=== PATIENT | female | born 1970 | race Caucasian/White ===

== ENCOUNTER 2017-02-22 16:35 | Emergency (ER) | payer OTHER ==
[~2017-02-22] VITALS: Ht 157.5 cm; Wt 78.9 kg
[~2017-02-22 16:35] MED LIST: LEVOTHYROXINE0.1 M1 PO
--- NOTE | 2017-02-22 16:47 | NUR ---
PATIENT PRESENTS TO ED FOR MEDICATION REFILL . PT STATES SHE RAN OUT OF HER LEVOTHYROXINE 2 WEEKS AGO AND CAN'T SEE HER PCP FOR 3 DAYS. DENIES N/V/D; SKIN IS PINK/WARM/DRY; AAOX4 WITH EVEN AND STEADY GAIT; LUNGS CLEAR BL; HR EVEN AND REGULAR; PT DENIES ANY FEVER, CP, SOB, OR COUGH AT THIS TIME; PATIENT STATES PAIN OF 0/10 AT THIS TIME; VSS ER MD MADE AWARE OF PT STATUS.
--- NOTE | 2017-02-22 16:50 | NUR ---
Vickie EVALUATING PT IN TRIAGE.
[2017-02-22 16:51] VITALS: BP 135/74
[2017-02-22 16:58] VITALS: BP 135/74
--- NOTE | 2017-02-22 16:59 | NUR ---
Patient discharged with v/s stable. Written and verbal after care instructions given and explained. Patient alert, oriented and verbalized understanding of instructions. Ambulatory with steady gait. All questions addressed prior to discharge. ID band removed. Patient advised to follow up with PMD. Rx of LEVO-T given. Patient educated on indication of medication including possible reaction and side effects. Opportunity to ask questions provided and answered.
== END 2017-02-22 16:59 | disposition home or self-care (01) ==
LOC: MED 16:35
DX: Z76.0 Encounter for issue of repeat prescription (principal); E03.9 Hypothyroidism, unspecified

== ENCOUNTER 2019-04-07 15:39 | Emergency (ER) | payer OTHER ==
[~2019-04-07] VITALS: Ht 157.5 cm; Wt 81.6 kg
[~2019-04-07 15:39] MED LIST changes: +LEVO0.1T19 PO; -LEVOTHYROXINE0.1 M1 PO
[2019-04-07 15:46] VITALS: BP 135/79
[2019-04-07] MEDS ORDERED: ONDANSETRON 4 MG ODT PO ONE (16:15)
[2019-04-07] MEDS ORDERED: HYDROcodone/APAP 5/325 MG 1 TAB TAB PO ONE (16:15)
--- NOTE | 2019-04-07 16:15 | NUR ---
C/O EPIGASTRIC PAIN X2 DAYS. PT REPORTS PAIN AT 10/10 WHILE SHE HAS NAUSEA . NO PAIN AT RESTING CONDITION. MEDHX:HYPOTHYROID RX:LEVOTHYROXINE
--- NOTE | 2019-04-07 16:23 | NUR ---
MEDS GIVEN ORDERED. CT AT THE BEDSIDE.
[2019-04-07 16:42] LABS: BASOPHILS % (AUTO) 0.3 % (0.0-2.0); EOSINOPHILS % (AUTO) 0.8 % (0.0-4.0); HEMATOCRIT 36.8 % (36-48); HEMOGLOBIN 12.4 g/dL (12.0-16.0); LYMPHOCYTES # (AUTO) 0.7 K/uL (2.5-16.5); LYMPHOCYTES % (AUTO) 14.6 % (20.5-51.1); MEAN CORPUSCULAR HEMOGLOBIN 30 pg (27-31); MEAN CORPUSCULAR HGB CONC 34 g/dL (33-37); MEAN CORPUSCULAR VOLUME 87.6 fL (80-94); MONOCYTES # (AUTO) 0.5 K/uL (0.8-1.0); MONOCYTES % (AUTO) 11.8 % (1.7-9.3); NEUTROPHILS # (AUTO) 3.3 K/uL (1.8-7.7); NEUTROPHILS % (AUTO) 72.5 % (42.2-75.2); PLATELET COUNT (AUTO) 134 K/uL (140-450); RED CELL DISTRIBUTION WIDTH 13.6 % (11.6-13.7); WHITE BLOOD COUNT (AUTO) 4.6 K/uL (4.8-10.8)
[2019-04-07 16:46] LABS: APPEARANCE,URINE SL CLOUDY (CLEAR); BILIRUBIN,URINE 1+ (NEGATIVE); BLOOD, URINE 2+ (NEGATIVE); COLOR,URINE YELLOW (YELLOW); LEUKOCYTE ESTERASE ,URINE TRACE (NEGATIVE); NITRITE, URINE NEGATIVE (NEGATIVE); UGLUCOSE NEGATIVE (NEGATIVE)
[2019-04-07 17:00] LABS: ALBUMIN 3.6 g/dL (3.4-5.0); ANION GAP 9.4 (8-16); CREATININE 0.6 mg/dL (0.6-1.3); POTASSIUM 3.4 mmol/L (3.5-5.1); TOTAL BILIRUBIN 1.1 mg/dL (0.0-1.0)
[2019-04-07 17:01] LABS: WBC,URINE 0-5 /HPF (0-5)
[2019-04-07 18:30] VITALS: BP 127/77
--- NOTE | 2019-04-07 18:30 | NUR ---
Patient discharged with v/s stable. Written and verbal after care instructions given and explained. Patient alert, oriented and verbalized understanding of instructions. Ambulatory with steady gait. All questions addressed prior to discharge. ID band removed. Patient advised to follow up with PMD. Rx of PEPCID, ZOFRAN AND NORCO given. Patient educated on indication of medication including possible reaction and side effects. Opportunity to ask questions provided and answered.
== END 2019-04-07 18:30 | disposition home or self-care (01) ==
LOC: MED 15:39
DX: R10.13 Epigastric pain (principal); R31.9 Hematuria, unspecified; K59.00 Constipation, unspecified; Z79.899 Other long term (current) drug therapy; Z90.49 Acquired absence of other specified parts of digestive tract
CPT/HCPCS: 36415; 74176; 80053; 81001; 81025; 83690; 85025; 87086; 99284; Q0162

== ENCOUNTER 2022-04-21 19:44 | Emergency (ER) | payer OTHER ==
[~2022-04-21] VITALS: Ht 157.5 cm; Wt 81.6 kg
[2022-04-21 20:00] VITALS: BP 126/94
--- NOTE | 2022-04-21 20:05 | NUR ---
PT AMBULATED WITH CANE TO BED #2
[2022-04-21 21:03] LABS: BASOPHILS % (AUTO) 0.6 % (0.0-2.0); EOSINOPHILS % (AUTO) 0.3 % (0.0-4.0); HEMATOCRIT 37.1 % (36-48); HEMOGLOBIN 12.6 g/dL (12.0-16.0); LYMPHOCYTES # (AUTO) 1.1 K/uL (2.5-16.5); LYMPHOCYTES % (AUTO) 14.6 % (20.5-51.1); MEAN CORPUSCULAR HEMOGLOBIN 31 pg (27-31); MEAN CORPUSCULAR HGB CONC 34 g/dL (33-37); MEAN CORPUSCULAR VOLUME 91.4 fL (80-94); MONOCYTES # (AUTO) 0.4 K/uL (0.8-1.0); MONOCYTES % (AUTO) 4.6 % (1.7-9.3); NEUTROPHILS # (AUTO) 6.3 K/uL (1.8-7.7); NEUTROPHILS % (AUTO) 79.9 % (42.2-75.2); PLATELET COUNT (AUTO) 228 K/uL (140-450); RED BLOOD CELL COUNT(AUTO) 4.05 MIL/uL (4.20-5.40); RED CELL DISTRIBUTION WIDTH 14.6 % (11.6-13.7); WHITE BLOOD COUNT (AUTO) 7.9 K/uL (4.8-10.8)
--- NOTE | 2022-04-21 21:17 | NUR ---
51 yo/f presents to ED w c/o 5/10 L knee pain pressure, stinging non-rad constant per PT d/t her arthritis and loss of cartilage and bone around the knee x1 month, w impaired walking and needing to use a cane to walk, +fluid retention to lower legs and cheeks, + petechia to abdomen and chest. Pt denies any injury, chest pain, sob, fevers, chills, n/v/d. pmh: pre-diabetis, thyroid dz, arthritis, kidney stones allergies: denies
[2022-04-21] MEDS: ACETAMINOPHEN EXTRA STRENGTH 500 MG TAB PO ONE (21:18)
[2022-04-21 21:21] LABS: ANION GAP 9.4 (8-16); CARBON DIOXIDE 30.5 mmol/L (21-32); CREATININE 0.8 mg/dL (0.6-1.3); POTASSIUM 3.9 mmol/L (3.5-5.1)
--- NOTE | 2022-04-21 21:28 | NUR ---
pt ambulatory to bathroom w use of cane, steady gait.
[2022-04-21] MEDS ORDERED: NAPR-54 PO (21:51)
[2022-04-21] MEDS ORDERED: BENC TP (21:51)
--- NOTE | 2022-04-21 22:05 | NUR ---
PT REPORTS PAIN HAS RESOLVED.
[2022-04-21 22:08] VITALS: BP 132/79
--- NOTE | 2022-04-21 22:08 | NUR ---
Patient discharged with v/s stable. Written and verbal after care instructions given and explained. Patient alert, oriented and verbalized understanding of instructions. Ambulatory with steady gait. All questions addressed prior to discharge. ID band removed. Patient advised to follow up with PMD. Rx of BENADRYL ITCH STOPPING CRM, NAPROXEN given. Patient educated on indication of medication including possible reaction and side effects. Opportunity to ask questions provided and answered.
== END 2022-04-21 22:08 | disposition home or self-care (01) ==
LOC: MED 19:44
DX: M17.11 Unilateral primary osteoarthritis, right knee (principal); Z79.899 Other long term (current) drug therapy; Z86.39 Personal history of other endocrine, nutritional and metabolic disease; Z79.1 Long term (current) use of non-steroidal anti-inflammatories (NSAID)
CPT/HCPCS: 36415; 73562; 80048; 81002; 85025; 99284

== ENCOUNTER 2023-02-09 05:28 | Emergency (ER) | payer OTHER ==
[~2023-02-09] VITALS: Ht 152.4 cm; Wt 80.7 kg
[~2023-02-09 05:28] MED LIST changes: +BENC TP; +NAPR-54 PO
--- NOTE | 2023-02-09 05:35 | NUR ---
PT AMBULATORY TO BED
[2023-02-09 05:40] VITALS: BP 157/97
--- NOTE | 2023-02-09 05:49 | NUR ---
pt is wolof speaker
--- NOTE | 2023-02-09 05:49 | NUR ---
BIB self for allergic reaction. c/o throat swelling, hoarseness. denies any difficulty breathing. per pt, started with a rash yesterday. pmhx hypothyroidism, denies allergies.
[2023-02-09] MEDS ORDERED: diphenhydrAMINE 50 MG/ML VIAL IVP ONE (06:10)
[2023-02-09] MEDS ORDERED: FAMOTIDINE 20 MG/2 ML VIAL IVP ONE (06:10)
[2023-02-09] MEDS ORDERED: methylPREDNISolone SS 125 MG/2 ML VIAL IVP ONE (06:10)
[2023-02-09] MEDS ORDERED: DIPH25TA53 PO (07:19)
[2023-02-09 07:43] VITALS: BP 142/77
--- NOTE | 2023-02-09 07:46 | NUR ---
Patient discharged with v/s stable. Written and verbal after care instructions given and explained. Patient alert, oriented and verbalized understanding of instructions. Ambulatory with steady gait. All questions addressed prior to discharge. ID band removed. Patient advised to follow up with PMD. Rx of benadryl given. Patient educated on indication of medication including possible reaction and side effects. Opportunity to ask questions provided and answered.
[2023-02-10] MEDS ORDERED: CETI10SG1 PO (10:39)
[2023-02-10] MEDS ORDERED: FAMO-92 PO (10:39)
== END 2023-02-09 07:43 | disposition home or self-care (01) ==
LOC: MED 05:28
DX: R21 Rash and other nonspecific skin eruption (principal); T78.49XA Other allergy, initial encounter; E03.9 Hypothyroidism, unspecified; Z79.899 Other long term (current) drug therapy; X58.XXXA Exposure to other specified factors, initial encounter
CPT/HCPCS: 96374; 96375; 99284; J1200; J2930; J3490

== ENCOUNTER 2023-02-10 09:59 | Emergency (ER) | payer OTHER ==
[~2023-02-10] VITALS: Ht 152.4 cm; Wt 80.3 kg
[~2023-02-10 09:59] MED LIST changes: +DIPH25TA53 PO
[2023-02-10 10:13] VITALS: BP 120/77
--- NOTE | 2023-02-10 10:20 | NUR ---
pt to bed with family
[2023-02-10] MEDS ORDERED: FAMO-92 PO (10:39)
[2023-02-10] MEDS ORDERED: CETI10SG1 PO (10:39)
[2023-02-10 11:09] VITALS: BP 120/77
--- NOTE | 2023-02-10 11:10 | NUR ---
Patient discharged with v/s stable. Written and verbal after care instructions given and explained. Patient alert, oriented and verbalized understanding of instructions. Ambulatory with steady gait. All questions addressed prior to discharge. ID band removed. Patient advised to follow up with PMD. Rx of ZYRTEC AND PEPCID given. Patient educated on indication of medication including possible reaction and side effects. Opportunity to ask questions provided and answered.
== END 2023-02-10 11:10 | disposition home or self-care (01) ==
LOC: MED 09:59
DX: L50.9 Urticaria, unspecified (principal); T78.49XA Other allergy, initial encounter; X58.XXXA Exposure to other specified factors, initial encounter
CPT/HCPCS: 99282